=== PATIENT | male | born 1985 | race Caucasian/White ===

== ENCOUNTER 2020-12-28 14:19 | Outpatient (CLI) | payer OTHER, SELFPAY ==
--- NOTE | 2020-12-28 14:30 | ECG_ITS ---
Measurements Intervals [place] Rate: 69 P: 35 OR: 168 QRS: -58 QRSD: 109 T: 55 QT: 358 QTc: 385 Interpretive Statements SINUS RHYTHM LEFT AXIS DEVIATION INCOMPLETE RIGHT BUNDLE BRANCH BLOCK ST ELEVATION IN ANTEROLAT/INF LEADS, PROBABLY EARLY REPOLARIZATION BORDERLINE ECG Electronically Signed On 12-28-2020 17:06:25 CDT by Mark Villarreal D.O.
== END 2020-12-28 14:20 | disposition home or self-care (01) ==
LOC: ANHSURGERY 14:23
PROVIDERS: PCP Nurse Practitioner Family; Visit Provider Surgery
DX: Z01.818 Encounter for other preprocedural examination (principal); K40.90 Unilateral inguinal hernia, without obstruction or gangrene, not specified as recurrent; E78.5 Hyperlipidemia, unspecified; I45.10 Unspecified right bundle-branch block
CPT/HCPCS: 36415; 86850; 86900; 86901; 93005

== ENCOUNTER 2020-12-30 02:18 | Day surgery (SDC) | payer OTHER, SELFPAY ==
[2020-12-22 15:06] VITALS: BMI 23.7
[2020-12-30] VITALS (9 sets, daily range): BP systolic 137–166; BP diastolic 76–99; PULSE 56–84; RESP 14–18; TEMP 36.4–36.7; O2SAT 97–100
[2020-12-30] MEDS: LACTATED RINGERS 1,000 ML 30 ML IV CONT ×2 (12:19→16:44)
[2020-12-30] MEDS: ACETAMINOPHEN 500 MG TABLET 1000 MG PO (12:20)
[2020-12-30] MEDS: KETOROLAC 15 MG/ML VIAL (*BKC) IV PUSH (12:20)
--- NOTE | 2020-12-30 13:00 | WPDANESEPPF ---
Anes - Initial Pre Proc Eval Procedure: Operation Date: 12/30/20 14:00 Proposed Procedures p Robotic Assisted Laparoscopic Left Inguinal Hernia Repair with Mesh - Leila Coto MD Date/Time: 12/30/20 13:00 Surgeon: Leila Coto MD Pre Op Diagnosis: left inguinal hernia Patient Data Age: 35 Gender: M Height: 6 ft 2 in Weight: 82.6 kg Last Vital Signs Temp 97.6 F 12/30/20 12:00 Pulse 84 12/30/20 12:00 Resp 18 12/30/20 12:00 BP 137/78 12/30/20 12:00 Pulse Ox 97 12/30/20 12:00 Allergies Allergy/AdvReac Type Severity Reaction Status Date / Time bupropion [From Wellbutrin] Allergy Severe Hives Verified 12/30/20 12:31 Home Medications Medication Instructions Recorded Confirmed Type atorvastatin 40 mg tablet 40 mg PO HS 12/07/20 12/30/20 History omeprazole 40 mg capsule,delayed 40 mg PO DAILY 12/07/20 12/30/20 History release Patient hx anesthesia problems: none Family hx anesthesia problems: none PMFSH Past Medical History Medical History Depression GERD (gastroesophageal reflux disease) High cholesterol Surgical History Surgical History History of facial surgery got bit by dog Lower extremity surgery planned leg surgery it has pins Family History Family History Sibling HIV (human immunodeficiency virus infection) Social History Social History Smoking packs per day: 1 Smoking cigarettes per day: 20.0 Years smoked: 20 Smoking pack-years: 20.00 Smoking status: Current every day smoker Tobacco type: cigarettes Alcohol intake: current Drinks per week: 6 Substance use: current Substance use type: marijuana Other substance usage details: SMOKE Last use: 12/22/20 Living arrangements: alone Additional occupation/education comments: lumber worker Gender identity (if verbalized by the patient): Male Spiritual care concerns: No Anes - Eval Final PreProcedure Day of Procedure 06/17/21 13:00 Patient weight: normal Heart: regular rate and rhythm Lungs: clear to auscultation Airway: Mallampati scale class II Neurological: alert and oriented Last oral intake: >/= 8 hours ASA classification: III Emergent: no Anesthetic plan: proceed Anesthesia type and monitoring: general ETT and standard monitoring Informed Consent: The patient's anesthetic plan and its attendant risks and benefits were discussed with the patient/family/POA. Questions were solicited and answers provided to the satisfaction of the patient/family/POA.
--- NOTE | 2020-12-30 13:48 | WPDHPUPDATE1 ---
History and Physical Update Update Date/Time: 12/30/20 13:48 History and Physical has been reviewed, including an updated exam of the patient. There are NO changes in the patient's condition. Risks, benefits, and alternatives have been discussed and questions answered. Patient agrees to proceed with procedure.
[2020-12-30] MEDS: ceFAZolin 2 GM/D5W 50 ML 2 GM/50 ML BAG IVPB (14:27)
[2020-12-30] MEDS: BUPIVACAINE/EPINEPHRINE 0.5% 10 ML VIAL 50 ML INFILTRATE (15:08)
--- NOTE | 2020-12-30 16:04 | W.PM.PROC2 ---
Procedure Note - Detailed Date of Procedure 12/30/20 Pre-op Diagnosis left inguinal hernia Post-op Diagnosis other (bilateral indirect inguinal hernia) Procedure Performed robotic assisted bilateral inguinal hernia repair with mesh Surgeon Leila Coto MD Anesthesia general Indications 35 y/o M presenting c bilateral groin pain. Workup in office significant for left inguinal hernia Findings bilateral inguinal hernia - indirect Description of Procedure Patient was brought into the operating room and placed in the supine position. After adequate induction of general anesthesia, the patient was prepped and draped in normal sterile fashion. A time-out was then done to verify the patient's identity, as well as the procedure being performed. Began by making a 8 mm incision in the supraumbilical region, a Veress needle was then placed into the peritoneal cavity. CO2 gas was then insufflated and after adequate pneumoperitoneum was achieved, the Veress needle was removed. I then placed an 8 mm trocar through this incision. I then placed the endoscope through this trocar site and under direct visualization placed 2 further 8 mm ports in the right and left mid abdomen. The [employer] robot was then docked to the 3 trocar sites. I then scrubbed out and went to the robotic console. Upon examining the pelvis, it was noted that the patient had bilateral inguinal hernias. I began by making a preperitoneal flap approximately 6 cm superior to the defect on the right. This flap was carried medially past the umbilical ligaments and laterally to the transversalis. I then began dissection of my medial compartment taking this down to the pubic tubercle. I then began the lateral dissection taking this down to the transversalis fascia. Once these compartments were achieved, I began dissection around the cord structures. It was noted at this point that the patient had a indirect hernia. Patient also had a lipoma the cord. Using careful dissection, was able to reduce the lipoma cord as well separate the indirect hernia off the cord structures. Once this was adequately done, I went ahead and placed a 15 x 10 piece of Pro Crochet Machine Operator mesh into the abdominal cavity. The mesh was carefully positioned, centering the center of the mesh over the indirect defect. Once this was done, was very satisfied with our tension-free repair. Repeating the procedure on the left, I began by making a preperitoneal flap approximately 6 cm superior to the defect on the left. This flap was carried medially past the umbilical ligaments and laterally to the transversalis. I then began dissection of my medial compartment taking this down to the pubic tubercle. I was able to connect this to the repair on the right side. I then began the lateral dissection taking this down to the transversalis fascia. Once these compartments were achieved, I began dissection around the cord structures. It was noted at this point that the patient had a indirect hernia. Patient also had a lipoma the cord. Using careful dissection, was able to reduce the lipoma cord as well separate the indirect hernia off the cord structures. Once this was adequately done, I went ahead and placed a 15 x 10 piece of Pro Crochet Machine Operator mesh into the abdominal cavity. The mesh was carefully positioned, centering the center of the mesh over the indirect defect. Once this was done, I was very satisfied with our tension-free repair. I then closed the peritoneal flap with a running 2.0 V Lock suture on both sides. The abdomen was then desufflated, and all ports were removed. All incisions were then closed with the 4.0 monocryl suture. Dermabond was placed on each wound. The patient tolerated the procedure well, was extubated in the operating room postoperatively, and will now be transferred to the recovery room in stable condition. Implants bilateral 15 x 10 Pro Crochet Machine Operator mesh Estimated Blood Loss 10 Drains No Packing No Pathology none sent Complicat
[2020-12-30] MEDS: fentaNYL CITRATE INJ (*CRX) 100 MCG/2 ML VIAL 25 MCG IV PUSH ×5 (16:38→17:19)
[2020-12-30] MEDS: oxyCODONE HCL (*CRX) 5 MG TAB IR PO (17:52)
== END 2020-12-30 18:40 | disposition home or self-care (01) ==
PROVIDERS: PCP Nurse Practitioner Family; Visit Provider Surgery
PROC: 8E0Y4CZ Robotic Assisted Procedure of Lower Extremity, Percutaneous Endoscopic Approach (ICD-10-PCS; CPT 49650; principal; 2020-12-30 14:00)
DX: K40.20 Bilateral inguinal hernia, without obstruction or gangrene, not specified as recurrent (principal); E78.00 Pure hypercholesterolemia, unspecified; K21.9 Gastro-esophageal reflux disease without esophagitis; F32.9 Major depressive disorder, single episode, unspecified; F17.210 Nicotine dependence, cigarettes, uncomplicated; F12.90 Cannabis use, unspecified, uncomplicated
CPT/HCPCS: 49650; S2900; 36415; 86850; 86900; 86901; 93005; A9270; C1781; J0690; J1100; J1170; J1885; J2250; J2704; J2710; J3010; J7120